=== PATIENT | male | born 1980 | race Asian ===

== ENCOUNTER 2025-03-22 20:51 | Emergency (ER) | payer SELFPAY ==
[~2025-03-22] VITALS: Ht 172.7 cm; Wt 79.5 kg
[2025-03-22 21:24] VITALS: BP 144/80; PULSE 77; RESP 18; TEMP 98.2; O2SAT 100
[2025-03-22] MEDS ORDERED: LIDOCAINE 1%/EPI 1:200,000/PF 10 ML VIAL ONE (21:43)
== END 2025-03-22 23:42 | disposition home or self-care (01) ==
LOC: EMS 20:51
DX: I83.891 Varicose veins of right lower extremity with other complications (principal)
CPT/HCPCS: 99282; 12001; J3490